=== PATIENT | female | born 1975 | race African-American/Black ===

== ENCOUNTER 2025-06-19 16:42 | Inpatient (IN) | payer OTHER ==
[2025-06-19] MEDS ORDERED: BENZOCAINE/MENTHOL (CHLORASEPTIC ) LOZENGE MM PRN (17:10)
[2025-06-19] MEDS ORDERED: POLYETHYLENE GLYCOL (HEALTHYLAX) 3350 17 GM PACKET PO PRN (17:10)
[2025-06-19] MEDS ORDERED: IBUPROFEN 400 MG TABLET (FP) PO PRN (17:10)
[2025-06-19] MEDS ORDERED: NICOTINE POLACRILEX 2 MG GUM BUC PRN (17:10)
[2025-06-19] MEDS ORDERED: ACETAMINOPHEN 325 MG TABLET (FP) PO PRN (17:10)
[2025-06-19] MEDS ORDERED: MAG HYDROX/AL HYDROX/SIMETH 30 ML UNIT-DOSE CUP PO PRN (17:10)
[2025-06-19] MEDS ORDERED: NALOXONE (NARCAN) HCL 4 MG/0.1 ML SPRAY NS PRN (17:10)
[2025-06-19] MEDS ORDERED: LOPERAMIDE HCL 2 MG CAPSULE PO PRN (17:10)
[2025-06-19] MEDS ORDERED: MAGNESIUM HYDROX 2400MG/30ML ORAL SUSPENSION 30 ML CUP PO PRN (17:10)
[2025-06-19] MEDS ORDERED: BENZONATATE 200 MG CAPSULE PO PRN (17:10)
[2025-06-19 17:23] VITALS: BMI 21.2
[2025-06-19] MEDS: THIAMINE 100 MG TABLET PO SCH (21:53)
[2025-06-19] MEDS: MELATONIN 5 MG TABLETS PO SCH (21:53)
[2025-06-19] MEDS: ESTRADIOL 2 MG TABLET PO SCH (21:54)
[2025-06-19] MEDS: TUBERCULIN PPD 5 TU/0.1ML SYRINGE (IN PATIENT USE ONLY) ID ONE (21:57)
[2025-06-20] MEDS: DARUNAVIR/COB/EMTRI/TENOF ALAF 1 EACH TABLET PO SCH (07:48)
[2025-06-20] MEDS: PRENATAL VITAMINS W/ FOLIC ACID TABLET (FP) PO SCH (11:00)
[2025-06-20 12:48] LABS: MCHC 32.0 g/dl (32.2-35.5); MEAN CELL VOLUME 98.8 fl (79.4-94.8); MEAN PLT VOLUME 9.9 fl (9.4-12.3); RDW 12.0 % (12.3-16.6)
[2025-06-20 13:02] LABS: URINE APPEARANCE Clear; URINE BILIRUBIN Negative (NEGATIVE); URINE COLOR Yellow; URINE GLUCOSE (UA) Negative (NEGATIVE); URINE KETONE Negative (NEGATIVE); URINE LEUK ESTERASE Trace (NEGATIVE); URINE NITRITE Negative (NEGATIVE); URINE PROTEIN Negative (NEGATIVE); URINE UROBILINOGEN 0.2 mg/dL (0.2-1.0)
[2025-06-20 13:10] LABS: GLUCOSE,RANDOM 104.0 mg/dL (74-106); TOT PROT 6.1 g/dl (6.4-8.2)
[2025-06-20 13:11] LABS: CO2 28.0 mmol/L (21-32)
[2025-06-20 13:13] LABS: ALK PHOS 110.0 U/L (40-150)
[2025-06-20 13:15] LABS: SGPT/ALT 24.0 U/L (0-55)
[2025-06-20 13:16] LABS: CREATININE 0.71 mg/dL (0.55-1.3); SGOT/AST 23.0 U/L (5-34)
[2025-06-20 13:33] LABS: HCV DIAGNOSTIC IN-HOUSE W/RFLX NON-REACTIVE (NONREACTIVE)
[2025-06-20 13:34] LABS: SYPHILIS W/ RPR CONF REACTIVE (NONREACTIVE)
[2025-06-20 18:06] LABS: RPR REFLEX REACTIVE 1:1 (NONREACTIVE)
[2025-06-20] MEDS: ESTRADIOL 2 MG TABLET PO SCH (19:18)
[2025-06-21] MEDS: [UNRECOGNIZED DRUG - OTHER] PO SCH (09:34)
[2025-06-21] MEDS: ESTRADIOL 2 MG TABLET PO SCH (09:45)
[2025-06-21] MEDS: guaiFENesin 600 MG TABLET.ER (FP) PO PRN (21:15)
[2025-06-21] MEDS: hydrOXYzine PAMOATE 25 MG CAPSULE (FP) PO PRN (21:15)
[2025-06-22] MEDS: IBUPROFEN 600 MG TABLET (FP) PO PRN (09:19)
[2025-06-22] MEDS: SPIRONOLACTONE 25 MG TABLET PO SCH (14:54)
[2025-06-22 20:57] VITALS: RESP 18
[2025-06-23 07:02] VITALS: BP 102/69; PULSE 63; TEMP 97.5
== END 2025-06-23 10:00 | disposition left against medical advice (07) | DRG 770 ==
LOC: YASAS 16:42 → Y3NR 18:18 → Y5N 06-22 12:26
PROVIDERS: ADMIT Psychiatry & Neurology Pain Medicine; ATTEND Psychiatry & Neurology Pain Medicine
PROC: HZ2ZZZZ Detoxification Services for Substance Abuse Treatment (ICD-10-PCS; principal; 2025-06-19)
DX: F14.20 Cocaine dependence, uncomplicated (principal); F17.210 Nicotine dependence, cigarettes, uncomplicated; F31.9 Bipolar disorder, unspecified; F64.0 Transsexualism; Z21 Asymptomatic human immunodeficiency virus [HIV] infection status; R73.03 Prediabetes; Z79.899 Other long term (current) drug therapy
CPT/HCPCS: 36415; 80053; 81003; 85027; 86593; 86780; 86803; 93005; 93010